=== PATIENT | female | born 1955 | race Caucasian/White ===

== ENCOUNTER 2019-09-01 20:59 | Inpatient (IN) | payer BC, OTHER ==
[~2019-09-01] VITALS: Ht 170.2 cm; Wt 91.6 kg
--- NOTE | 2019-09-01 21:06 | NUR ---
Patient arrived in the ER via gurney accompanied by 2 paramedics Med Reach#[id number], from [facility] on a 5150 hold, is here for medical clearance.
[2019-09-01] MEDS ORDERED: MAGN400O6 PO (21:27)
[2019-09-01] MEDS ORDERED: LORA0.5T48 PO (21:27)
[2019-09-01] MEDS ORDERED: DEXT15SY3 PO (21:27)
[2019-09-01] MEDS ORDERED: DIPH50CA37 PO (21:27)
[2019-09-01] MEDS ORDERED: IBUP-1954 PO (21:27)
[2019-09-01] MEDS ORDERED: HYDR50CA PO (21:27)
[2019-09-01] MEDS ORDERED: ACET-2154 PO (21:27)
[2019-09-01] MEDS ORDERED: BISM262O28 PO (21:27)
--- NOTE | 2019-09-01 22:45 | NUR ---
Pt. admitted to [facility] room 140B, under care of Dr. Quarles and Dr. Loyd. Report given to VY Servin. Belongs List completed.
[2019-09-01 23:00] VITALS: BP 141/72
[2019-09-01] MEDS ORDERED: MAGNESIUM HYDROXIDE 30 ML LIQUID UDC PO PRN (23:15)
[2019-09-01] MEDS ORDERED: BLOOD SUGAR DIAGNOSTIC 1 EACH STRIP VI ONE (23:15)
[2019-09-01] MEDS ORDERED: CLONAZEPAM 0.5 MG TABLET PO PRN (23:15)
[2019-09-01] MEDS ORDERED: ACETAMINOPHEN 325 MG TABLET PO PRN (23:15)
[2019-09-01] MEDS ORDERED: TEMAZEPAM 7.5 MG CAPSULE PO PRN (23:15)
[2019-09-01] MEDS ORDERED: MAG HYDROX/AL HYDROX/SIMETH 30 ML LIQUID UDC PO PRN (23:15)
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
--- NOTE | 2019-09-02 06:00 | NUR ---
slept 5.25 hours, total. continues to sleep. no distress noted.
[2019-09-02 07:23] LABS: BILIRUBIN,TOTAL 0.5 mg/dL (0.2-1.0); TOTAL PROTEIN, SERUM 8.3 g/dL (6.4-8.2)
[2019-09-02 07:30] VITALS: BP 123/68
[2019-09-02] MEDS ORDERED: LORAZEPAM 1 MG TABLET PO PRN (10:00)
[2019-09-02] MEDS ORDERED: OLANZAPINE 5 MG TABLET PO SCH ×2 (10:00→10:30)
--- NOTE | 2019-09-02 10:19 | NUR ---
Social Work Family Contact: mesh worker contacted patient's Isac ([phone]) to gather collateral. Per Isac, he stated that patient knows how to cheek her medication and has been doing so. This typewriter operator automatic notified the nursing staff.
--- NOTE | 2019-09-02 10:19 | NUR ---
Social Work Initial Discharge Plan: Patient currently resides at [id number] [place] [address]; ([phone]) with her Isac ([phone]). Per Isac, he stated when patient is ready for discharge will return back home. pick and shovel worker will work with patient and the MD regarding appropriate discharge planning. pick and shovel worker will form a safe and proper discharge.
--- NOTE | 2019-09-02 12:22 | NUR ---
Patient seen and examined by PAPER SORTER Corey regarding redness in left breast underfold. Ordered nystatin every 12hours given and observe. Seen and examined by MD Nelson with new psych order. Patienis calm, no agitation noted. will continue monitor
--- NOTE | 2019-09-02 14:00 | NUR ---
MONIKA UR Note: MONIKA faxed spoke with and faxed Ekaterina from [place] (ph: [phone] fax: [phone]) patients face sheet, 5150 hold, history and physical, medication and labs. Ekaterina stated that Josi will be calling this life insurance underwriter back with the authorization number.
[2019-09-02 15:50] VITALS: BP 140/89
[2019-09-02] MEDS: DIVALPROEX 250 MG TABLET.DR PO SCH (20:58)
[2019-09-02] MEDS: NYSTATIN OINTMENT 15 GM TUBE TOP SCH (20:59)
[2019-09-02] MEDS: OLANZAPINE 5 MG TABLET PO SCH (20:59)
[2019-09-02 21:10] VITALS: BP 121/70
--- NOTE | 2019-09-02 22:00 | NUR ---
received to care, lying in bed, isolative, but pleasant upon approach. compliant with medications and staff direction. as of 0, she appears to be asleep. no distress noted. will continue to monitor closely.
--- NOTE | 2019-09-03 06:00 | NUR ---
slept 6.5 hours, total. continues to sleep. no distress noted.
[2019-09-03 07:30] VITALS: BP 113/62
[2019-09-03 07:32] LABS: BASOPHILS % (AUTO) 0.5 % (0.0-2.0); HEMATOCRIT 39.5 % (31.2-41.9); HEMOGLOBIN 13.2 g/dL (10.9-14.3); LYMPHOCYTES # (AUTO) 2.8 K/uL (20.0-40.0); LYMPHOCYTES % (AUTO) 37.5 % (20.5-51.5); MEAN CORPUSCULAR HEMOGLOBIN 30.4 uug (24.7-32.8); MEAN CORPUSCULAR HGB CONC 34 g/dL (32.3-35.6); MEAN CORPUSCULAR VOLUME 90.9 fL (75.5-95.3); MONOCYTES # (AUTO) 0.4 K/uL (2.0-10.0); MONOCYTES % (AUTO) 5.6 % (0.0-11.0); NEUTROPHILS # (AUTO) 4.2 K/uL (1.8-8.9); NEUTROPHILS % (AUTO) 56.4 % (38.5-71.5); PLATELET COUNT (AUTO) 285 K/uL (179-408); RED BLOOD CELL COUNT(AUTO) 4.34 MIL/uL (3.63-4.92); WHITE BLOOD COUNT (AUTO) 7.5 K/uL (3.8-11.8)
[2019-09-03 08:01] LABS: THYROID STIMULATING HORMONE 2.018 mIU/mL (0.358-3.740)
[2019-09-03 08:19] LABS: BILIRUBIN,DIRECT 0.1 mg/dL (0.0-0.2); BILIRUBIN,TOTAL 0.4 mg/dL (0.2-1.0); MAGNESIUM 2.2 mg/dL (1.8-2.4); PHOSPHOROUS 3.7 mg/dL (2.5-4.9); TOTAL PROTEIN, SERUM 8.3 g/dL (6.4-8.2)
[2019-09-03] MEDS: OLANZAPINE 5 MG TABLET PO SCH ×3 (08:48→21:12)
[2019-09-03] MEDS: DIVALPROEX 250 MG TABLET.DR PO SCH ×3 (08:48→21:12)
[2019-09-03] MEDS: NYSTATIN OINTMENT 15 GM TUBE TOP SCH ×2 (08:54→21:14)
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
[2019-09-03 16:00] VITALS: BP 124/77
[2019-09-03 21:01] VITALS: BP 136/70
[2019-09-04 07:30] VITALS: BP 128/78
[2019-09-04] MEDS: OLANZAPINE 5 MG TABLET PO SCH ×3 (07:54→20:24)
[2019-09-04] MEDS: DIVALPROEX 250 MG TABLET.DR PO SCH ×3 (08:18→20:24)
[2019-09-04] MEDS: NYSTATIN OINTMENT 15 GM TUBE TOP SCH ×2 (08:19→20:32)
--- NOTE | 2019-09-04 10:01 | NUR ---
GPS: PATIENT AOX3-4, CALM COOPERATIVE, COMPLIANT WITH MEDICATION , DENIES SI AND HI, WILL CONTINUE MONITOR
[2019-09-04 16:00] VITALS: BP 136/55
--- NOTE | 2019-09-04 18:09 | NUR ---
patient remain isolative and withdrawn, responding to internal stimuli, seen patient talking to herself, easily irritable, redirectable, denies SI and Hi, no distress at this time
--- NOTE | 2019-09-04 20:00 | NUR ---
GPS nurse's note: received patient in her room in bed asleep but easily arousable. patient noted A/O x2. able to make her needs known and able to ambulate with steady gait. patient noted evasive, low mood, withdrawn and isolative. she denies SI/HI/VA/AH. Pt is encouraged to verbalized feelings. v/s stable. safety and fall precaution in place. pt is reassured for her safety. will continue to monitor.
[2019-09-04 20:45] VITALS: BP 137/64
--- NOTE | 2019-09-04 22:00 | NUR ---
INITIALLY, PATIENT REFUSED NYSTATIN OINTMENT FOR REDNESS UNDER HER BREASTS, BUT SHE LATER AGREED TO HAVE IT APPLY BY THIS HEADWAITER/HEADWAITRESS. REDNESS NOTED IN BOTH BREASTS. NO FOUL ODOR OR DISCHARGES WERE NOTED, PATIENT STATED THAT SHE FEELS SOME DISCOMFORT WHEN APPLYING THE OINTMENT. WILL CONTINUE TO MONITOR.
--- NOTE | 2019-09-05 06:42 | NUR ---
PATIENT SLEPT FOR APPROX 7.00 HRS THROUGH THE NIGHT. SHE HAD A SHOWER THIS AM. SHE IS NOTED EASILY IRRITABLE. CONTINUE COMPLIANT WITH MEDICATION REGIMENT AT THIS TIME.
[2019-09-05 07:30] VITALS: BP 137/51
[2019-09-05] MEDS: OLANZAPINE 5 MG TABLET PO SCH ×3 (07:50→20:11)
[2019-09-05] MEDS: NYSTATIN OINTMENT 15 GM TUBE TOP SCH ×2 (08:44→20:17)
[2019-09-05] MEDS: DIVALPROEX 250 MG TABLET.DR PO SCH ×3 (08:44→20:11)
--- NOTE | 2019-09-05 09:55 | NUR ---
received patien in her room, isolative and withdrawn, responding to internal stimuli, patient compliant with medication, check for cheeking her meds, patient swallowed morning meds, no distress at this time
--- NOTE | 2019-09-05 10:40 | NUR ---
Social Work Firearms Report (DOJ): Mooner completed and submitted a [employer] firearms report for 5150 danger to others certification. A copy of report has been placed in patient chart.
--- NOTE | 2019-09-05 10:41 | NUR ---
Social Work Family Contact: cut in worker spoke with patient's Isac ([phone]) who was concerned about the patient's stability before she returns home. Isac stated that the patient had been getting Invega and she has been successful, Isac is requesting if the psychiatrist can get her started on Invega here. This sports book writer stated she will inform the doctor and get back to him. 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
--- NOTE | 2019-09-05 11:25 | NUR ---
MONIKA UR Note: Auth # [id number] MONIKA spoke with Josi top case assembler from [facility] (ph: [phone] ) and faxed her updated clinicals including progress notes, medication and labs.
--- NOTE | 2019-09-05 13:01 | NUR ---
Patient continue to be compliant, patient responding to internal stimuli, patient isolative and withdrwan
[2019-09-05 15:36] VITALS: BP 129/58
--- NOTE | 2019-09-05 16:54 | NUR ---
patient stays mostly in her room, patient participated with group activity, denies SI and HI, responding to internal stimuli, will continue monitor
--- NOTE | 2019-09-05 18:31 | NUR ---
patient been compliant , isolative , withdrawn, no aggressive behavior
[2019-09-05 20:13] VITALS: BP 172/54
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
[2019-09-05 21:00] VITALS: BP 124/54
[2019-09-06 07:49] VITALS: BP 122/66
[2019-09-06] MEDS: OLANZAPINE 5 MG TABLET PO SCH ×3 (08:02→20:12)
[2019-09-06] MEDS: DIVALPROEX 250 MG TABLET.DR PO SCH ×3 (08:02→20:12)
[2019-09-06] MEDS: NYSTATIN OINTMENT 15 GM TUBE TOP SCH ×2 (08:03→20:13)
--- NOTE | 2019-09-06 11:24 | NUR ---
MONIKA UR Note: Auth # [id number] MONIKA spoke with Josi rehabilitation caseworker from [facility] (ph: [phone] ) and faxed her updated clinicals including progress note. Addendum: 09/06/19 at 1143 by SOFY FAN MONIKA spoke with Josi again regarding discharge planning and getting outpatient psychiatry appointment, primary care physician appointment, and home health services for the patient prior to discharge. Josi stated that she will put the order in right now. This ghost writer faxed Josi the home health order prescription and is waiting for a call back soon with the aftercare appointments.
--- NOTE | 2019-09-06 15:00 | NUR ---
MONIKA Discharge Planning: MONIKA spoke with Ekaterina from [place] ([phone]) who stated that she is working on getting the patient outpatient psych appointment, primary care physician appointment, and possible (IOP) Intensive outpatient program at [facility], and home health services for the patient by tomorrow. Ekaterina stated that she will call this casualty underwriter back tomorrow with updates.
[2019-09-06 15:55] VITALS: BP 127/67
--- NOTE | 2019-09-06 16:10 | NUR ---
MONIKA Brief Individual Counseling: SW met with patient patient to provide individual counseling regarding patient's combative and aggressive behaviors. Patient presents withdrawn and suspicious. patient is hesitant on engaging in a conversation, however, after prompting and providing empathetic approach, patient is able to share and have minimal interaction. Patient mostly says "yes" or "no" to questions about how she is feeling. This com writer encouraged patient to participate and join group activities. Patient states that she would like to go home where she lives with her "" who she states they are but still together.
[2019-09-06 20:54] VITALS: BP 132/76
[2019-09-07 07:30] VITALS: BP 142/61
[2019-09-07] MEDS: DIVALPROEX 250 MG TABLET.DR PO SCH ×3 (08:20→20:32)
[2019-09-07] MEDS: OLANZAPINE 5 MG TABLET PO SCH ×3 (08:21→20:32)
[2019-09-07] MEDS: NYSTATIN OINTMENT 15 GM TUBE TOP SCH ×2 (08:21→20:34)
--- NOTE | 2019-09-07 13:10 | NUR ---
MONIKA UR Note: MONIKA spoke with Josi from [place] ([phone]) and provided updated clinical information and faxed it to her (fax: [phone]).
--- NOTE | 2019-09-07 13:43 | NUR ---
MONIKA Discharge Planning: MONIKA also spoke with Ekaterina from [place] ([phone]) regarding patient's discharge planning and received information that the patient can qualify for (IOP) Intensive outpatient program at [facility] and that this commercial real estate underwriter will need to fax them the patient's referral packet. This commercial real estate underwriter then spoke with Carol at [facility] ([phone]) and faxed her the patient's referral packet (fax: [phone]). This commercial real estate underwriter informed Carol that the patient's is interested for the patient to received Invega injection which Carol confirmed they can provide. MONIKA informed joseph's , Isac ([phone]) of all this information. Isac was adamant on calling [facility] Carol to get started with the appointment, and this commercial real estate underwriter stated that he may do so. Isac then requested if this commercial real estate underwriter can email him all the information ([email or web address]) which she did. Isac was a little upset that the patient can not get Invega here at the hospital as this commercial real estate underwriter informed that the pharmacy does not provide it. Addendum: 09/07/19 at 1347 by SOFY FAN Ekaterina also stated that she is still working on getting a home health service set up for the patient today prior to her discharge tomorrow. This commercial real estate underwriter already faxed the home health order.
[2019-09-07 16:00] VITALS: BP 129/81
[2019-09-07 20:57] VITALS: BP 120/77
[2019-09-08 07:30] VITALS: BP 130/72
--- NOTE | 2019-09-08 08:20 | NUR ---
SW Family Contact: SW called patient's , Isac ([phone]) do ask about what time they will come to scrap picker the patient and Isac began to get agitated and verbally aggressive with this comic writer. He stated "you guys are throwing her out without the proper care". This comic writer stated that the patient is stabilized here with the proper medications which she is compliant with and is ready to go home. Isac then stated that "she needs Invega and you are not giving it". This comic writer again confirmed that the hospital is unable to get Invega as our pharmacy does not provide it and the patient can get it on a outpatient patient clinic which this comic writer provided and arranged for the patient and emailed the information to Isac.
[2019-09-08] MEDS: DIVALPROEX 250 MG TABLET.DR PO SCH ×2 (08:22→12:29)
[2019-09-08] MEDS: OLANZAPINE 5 MG TABLET PO SCH ×2 (08:22→12:29)
[2019-09-08] MEDS: NYSTATIN OINTMENT 15 GM TUBE TOP SCH (08:22)
--- NOTE | 2019-09-08 08:59 | NUR ---
Discharge Note: Patient will be discharged back home today [address] [place] [address] ([phone]). Patient will be provided transportation by her , Isac ([phone]) who will be picking her up between 1-3pm tday. Patient is aware and agreeable with discharge plans. Patient presents with appropriate mood and congruent affect. Patient denies suicidal or homicidal ideation. Patient is referred to [facility] for Intensive Outpatient Program (IOP) several times a week [address], [place] [address] ([phone]). Patient will be following up with Psychiatrist Dr. Montemayor and will be seeing a psychologist for individual and group counseling, Dr. Wolff. Patient will be following up with her primary care physician Dr. Pino and has an appointment scheduled on Thursday September 12, 2019 at 12pm [address] [facility], [address] ([phone]). Patient is referred for home health services authorized through [facility] with [facility] [address], [place], [address] ([phone]) for home visits, medication management, ADL assistance and physical therapy. Patient was also provided with outpatient mental health resources to [facility] , and the National Suicide Prevention Lifeline .
--- NOTE | 2019-09-08 13:46 | NUR ---
Patient discharged home with . Prescriptions, belongings and follow up instructions given. Patient verbalized understanding of instructions. Patient denies SI and HI. No acute behavioral issues noted at time of discharge. Patient has been medication compliant up till time of discharge.
== END 2019-09-08 13:46 | disposition home or self-care (01) | DRG 885 ==
LOC: ER 21:07 → GPS 22:33
PROVIDERS: ADMIT Psychiatry & Neurology Psychosomatic Medicine; ATTEND Nurse Practitioner Acute Care
DX: F25.0 Schizoaffective disorder, bipolar type (principal); F23 Brief psychotic disorder; E66.9 Obesity, unspecified; Z68.32 Body mass index [BMI] 32.0-32.9, adult; E78.5 Hyperlipidemia, unspecified
CPT/HCPCS: 36415; 71045; 80164; 83735; 84100; 84443; 85025; 93005; A4663; J3490